=== PATIENT | female | born 1950 | race Caucasian/White ===

== ENCOUNTER → 2021-03-11 15:50 | Outpatient (CLI) | payer MEDICARE, MEDICAID, SELFPAY ==
[2021-03-11 16:29] LABS: COVID19 -Nasal RAPID Negative (Negative)
== END ==
PROVIDERS: Visit Provider Specialist
DX: Z01.812 Encounter for preprocedural laboratory examination (principal); Z20.822 Contact with and (suspected) exposure to COVID-19
CPT/HCPCS: 87635; C9803

== ENCOUNTER 2021-03-12 10:22 | Day surgery (SDC) | payer MEDICARE, MEDICAID, SELFPAY ==
[2021-03-10 14:26] VITALS: BMI 37.4
[2021-03-12] VITALS (7 sets, daily range): BP systolic 138–183; BP diastolic 61–103; PULSE 95–112; RESP 14–18; TEMP 36.2–38; O2SAT 90–96; BMI 37.4
--- NOTE | 2021-03-12 | PATH_ITS ---
[facility] Accession Number: [id number] . 01 Material submitted: . endometrium - ENDOMETRIAL CURRETTINGS . 02 Diagnosis: Endometrium, Curettings: Inactive/noncycling endometrium with no evidence of neoplasia or hyperplasia. [facility] 03/16/2021 1528 Local . 02 Electronically signed: . Brianna Chavez MD, Pathologist NPI- [id number] . 01 Gross description: . ENDOMETRIAL CURRETTINGS: Received in formalin are minute fragments of mucoid and hemorrhagic material measuring 0.5 x 0.5 x 0.2 cm in aggregate. Submitted in toto in 1 cassette. /KALI 03/13/2021 2103 Local . 02 Pathologist provided ICD-10: N93.9 . 02 CPT . 331466 Performed at: 01 [facility] [address] [id number] MD Duc Gulilen MD Phone: [phone] Performed at: 02 [facility] [address] [place], [place] [id number] MD Brianna Chavez MD Phone: [phone]
[2021-03-12] MEDS: LACTATED RINGERS 1,000 ML 84 ML IV (10:30)
--- NOTE | 2021-03-12 11:36 | SUR.OPER ---
Lithotomy on padded OR bed, head on pillow, arms secured on padded arm boards at <90 degrees abduction. Legs secured in padded yellow fins stirrups.
--- NOTE | 2021-03-12 11:49 | PM.HP.1 ---
History of Present Illness History of Present Illness Date Patient Seen: 03/12/21 Time Patient Seen: 11:49 Chief complaint: SDC Narrative: Patient is a 70-year-old 3 para 1 who presents for a D&C hysteroscopy due to postmenopausal bleeding and a thickened endometrial lining. Patient had a traumatic experience with an endometrial biopsy in the office, and did not want to attempt that this time. Lining of the uterus was 13.9 mm. Patient History Surgical History (Updated 12/25/20 @ 06:10 by Sara Bueno MD) H/O tubal ligation History of back surgery Status post wisdom tooth extraction Family & Social History Tobacco & Substance use: Smoking Status Former smoker alcohol intake current alcohol intake frequency a few times a week Substance Use Type marijuana Meds Home Medications and Allergies Home Medications Medication Instructions Recorded Confirmed Type levothyroxine 50 mcg tablet 50 mcg PO QDAY #30 10/03/12 03/12/21 Rx (Synthroid) ipratropium 20 mcg-albuterol 100 1 puff INH QID #0 inh 10/26/12 03/12/21 History mcg/actuation mist for inhalation (Combivent Respimat) benazepril 20 mg tablet 20 mg PO BID #0 tab 12/06/12 03/12/21 History amitriptyline 50 mg tablet 50 mg PO ONCE PM 03/12/21 03/12/21 History hydrochlorothiazide 25 mg tablet 25 mg PO QDAY 03/12/21 03/12/21 History metoprolol tartrate 25 mg tablet 25 mg PO DAILY 03/12/21 03/12/21 History Allergies Allergy/AdvReac Type Severity Reaction Status Date / Time From PERCOCET Allergy Unknown PER PT Uncoded 03/12/21 10:02 AMLODIPINE AdvReac Mild Edema Uncoded 03/12/21 10:02 CITALOPRAM AdvReac Mild Shakiness Uncoded 03/12/21 10:02 Exam Vital Signs (past 8 hours): - 03/12/21 10:46 Temperature 100.4 F H Pulse Rate 112 H Respiratory Rate 18 Blood Pressure 183/100 H Pulse Oximetry 96 Oxygen Delivery Method Room Air Narrative Exam Narrative: HEENT: No thyromegaly, no anterior cervical or supraclavicular lymphadenopathy. Lungs:Clear to auscultation bilaterally, no wheezes. Cardiovascular: Regular rate and rhythm, no murmurs, rubs, or gallops. Abdomen: Well-healed scars. No hepatosplenomegaly. No masses palpable. External genitalia: Normal Vagina: Normal Cervix: Normal Bimanual exam: 7 Week size anteverted uterus. Mobile. Extremities: No edema Assessment & Plan Assessment & Plan narrative: Assessment: 70-year-old 3 para 1 with endometrial hyperplasia and postmenopausal bleeding Did not want to attempt endometrial biopsy in the office due to a previous traumatic experience Plan: D&C hysteroscopy The risks, benefits, and alternatives to the procedure were explained to the patient. The risks including bleeding, infection, and uterine perforation. She understands these risks and agrees to proceed. A full par Q was held and consent form was signed. COVID-19 COVID-19 status: Negative Result date/Date tested (Pos, Neg/Pending): 03/11/21 Time Spent With Patient Time with patient: less than 30 minutes Critical Care time: I spent a total of [] minutes of critical care time on this patient's care today; this time is exclusive of procedural time.
--- NOTE | 2021-03-12 11:52 | PM.PREOP ---
Pre-operative Note COVID-19 COVID-19 status: Negative Result date/Date tested (Pos, Neg/Pending): 03/11/21 Interval Note History & Physical reviewed/Exam performed by Physician: Yes Changes to H&P: No H&P completed within 30 days and has changed as indicated here:: 03/13/21
--- NOTE | 2021-03-12 12:41 | PM.GYNOP.1 ---
Operative Date/Time/Diagnoses Date of procedure: 03/12/21 Time of procedure: 12:42 Pre-op diagnosis: Postmenopausal bleeding Endometrial hyperplasia Post-op diagnosis: same Procedure & Clinicians Procedure: Procedures Operation Date: 03/12/21 11:15 Actual Procedure Side Surgeon p Hysteroscopy D&C, check sling incision Not Applicable Sara Bueno MD Indications: Postmenopausal bleeding Endometrial hyperplasia Surgeon: Sara Bueno Anesthesia Type: General (LMA) Operative Notes Findings: 8 week size anteverted uterus Both fallopian tube ostia observed Thickened endometrial lining Closure Type: not applicable Specimen(s): endometrial curettings Estimated blood loss (mL): 5 Blood products transfused: none Procedure in detail: After informed consent was obtained, the patient was taken to the operating room where she was placed in the dorsal supine position. After LMA general anesthesia was achieved, she was placed in the dorsal lithotomy position, and prepped and draped in the usual sterile fashion. A time-out was performed. A bivalve speculum was placed into the vagina. A single-tooth tenaculum was placed on the anterior lip of the cervix. The cervical os was sequentially dilated to the # 9 Hegar dilator. The hysteroscope passed easily into the endometrial cavity. Initial inspection revealed both fallopian tube ostia. There was thickened endometrial lining. No polyps or fibroids were appreciated. The hysteroscope was removed from the uterus. Sharp curettage was performed yielding a large amount of endometrial curettings. The instruments were removed from the uterus. The single-tooth tenaculum was removed from the anterior lip of the cervix. The bivalve speculum was removed from the vagina. Sponge, lap, and instrument counts were correct x2. The patient tolerated the procedure well, and was taken to PACU in stable condition. Complications: none Post-operative Condition: stable Disposition: PACU Plan for aftercare: Home after recovery
== END 2021-03-12 13:33 | disposition home or self-care (01) ==
PROVIDERS: PCP Psychiatry & Neurology Forensic Psychiatry; Referring Provider Obstetrics & Gynecology; Visit Provider Obstetrics & Gynecology
PROC: 0UDB8ZZ Extraction of Endometrium, Via Natural or Artificial Opening Endoscopic (ICD-10-PCS; CPT 58558; principal; 2021-03-12 11:15)
DX: N95.0 Postmenopausal bleeding (principal); N85.00 Endometrial hyperplasia, unspecified
CPT/HCPCS: 58558; J1100; J1885; J2250; J2405; J2704; J3010

== ENCOUNTER 2022-08-04 21:39 | Emergency (ER) | payer MEDICARE, MEDICAID, SELFPAY ==
[2022-08-04 21:54] VITALS: BP 149/84; PULSE 97; RESP 18; TEMP 37; O2SAT 100; BMI 31.3
[2022-08-04 22:21] LABS: Add Manual Diff / Slide Review NO; Basophils Absolute Auto 100 /uL (0-100); Basophils Percent Auto 0.9 % (0-2); Eosinophils Absolute Auto 200 /uL (0-450); Eosinophils Percent Auto 1.8 % (2-4); Hematocrit 28.4 % (36-46); Lymphocytes Absolute Auto 1500 /uL (1100-4500); Lymphocytes Percent Auto 13.2 % (25-40); Mean Corpuscular HGB Conc 31.8 % (30-36); Mean Corpuscular Hemoglobin 24.1 PG (26-34); Mean Corpuscular Volume 75.7 fL (80-100); Monocytes Absolute Auto 800 /uL (0-900); Monocytes Percent Auto 6.7 % (3-14); Neutrophils Absolute Auto 8800 /uL (1500-7000); Neutrophils Percent Auto 77.4 % (50-75); Platelet Count 329 X10^3/uL (150-400); Red Blood Cell Count 3.75 X10^6/uL (4.0-5.2); Red Cell Distribution Width 21.2 % (11.6-14.8); White Blood Cell Count 11.4 X10^3/uL (4.5-11.0)
[2022-08-04 22:33] LABS: Alanine Aminotransferase 24 IU/L (<35); Albumin 4.2 g/dL (3.5-5.0); Albumin Globulin Ratio 1.4 (1.0-2.8); Alkaline Phosphatase 127 U/L (38-126); Aspartate Aminotransferase 28 IU/L (14-36); BUN Creatinine Ratio 17.5 (6-22); Bilirubin Total 0.9 mg/dL (0.2-1.3); Blood Urea Nitrogen 18 mg/dL (7-17); Calcium 9.2 mg/dL (8.4-10.2); Carbon Dioxide 25 mmol/L (22-32); Chloride 103 mmol/L (98-107); Estimated Glomerular Filt Rate 59 mL/min (>60); Glucose 116 mg/dL (80-110); HEMOLYSIS < 15 (0-50); Lipase 125 U/L (23-300); Potassium 3.4 mmol/L (3.4-5.1); Sodium 138 mmol/L (137-145); Total Protein 7.2 g/dL (6.3-8.2)
[2022-08-04 22:43] LABS: Ethanol (ETOH) < 10 mg/dL
[2022-08-04 23:06] LABS: Anisocytosis 3+
== END 2022-08-04 23:05 | disposition left against medical advice (07) ==
PROVIDERS: Emergency Provider Emergency Medicine
DX: R10.10 Upper abdominal pain, unspecified (principal); R11.2 Nausea with vomiting, unspecified; R19.7 Diarrhea, unspecified
CPT/HCPCS: 36415; 80053; 80320; 83690; 85025; 99283

== ENCOUNTER 2022-11-10 15:51 | Emergency (ER) | payer MEDICARE, MEDICAID, SELFPAY ==
[2022-11-10 16:10] VITALS: BP 154/73; PULSE 97; RESP 20; TEMP 36.8; O2SAT 98; BMI 31.9
[2022-11-10 16:54] LABS: Add Manual Diff / Slide Review NO; Basophils Absolute Auto 0 /uL (0-100); Basophils Percent Auto 0.2 % (0-2); Eosinophils Absolute Auto 200 /uL (0-450); Eosinophils Percent Auto 2.6 % (2-4); Hematocrit 27.7 % (36-46); Hemoglobin 8.9 g/dL (12.0-16.0); Lymphocytes Absolute Auto 1400 /uL (1100-4500); Lymphocytes Percent Auto 16.7 % (25-40); Mean Corpuscular HGB Conc 32.2 % (30-36); Mean Corpuscular Hemoglobin 23.7 PG (26-34); Mean Corpuscular Volume 73.7 fL (80-100); Monocytes Absolute Auto 600 /uL (0-900); Monocytes Percent Auto 7.4 % (3-14); Neutrophils Absolute Auto 6200 /uL (1500-7000); Neutrophils Percent Auto 73.1 % (50-75); Platelet Count 357 X10^3/uL (150-400); Red Blood Cell Count 3.76 X10^6/uL (4.0-5.2); Red Cell Distribution Width 18.6 % (11.6-14.8); White Blood Cell Count 8.4 X10^3/uL (4.5-11.0)
[2022-11-10 17:08] LABS: Alanine Aminotransferase 20 IU/L (<35); Albumin 4.4 g/dL (3.5-5.0); Albumin Globulin Ratio 1.3 (1.0-2.8); Alkaline Phosphatase 110 U/L (38-126); Aspartate Aminotransferase 28 IU/L (14-36); BUN Creatinine Ratio 14.9 (6-22); Bilirubin Total 0.7 mg/dL (0.2-1.3); Blood Urea Nitrogen 18 mg/dL (7-17); Calcium 9.2 mg/dL (8.4-10.2); Carbon Dioxide 26 mmol/L (22-32); Chloride 100 mmol/L (98-107); Estimated Glomerular Filt Rate 48 mL/min (>60); Globulin 3.4 g/dL (1.7-4.1); Glucose 109 mg/dL (80-110); HEMOLYSIS < 15 (0-50); Lipase 145 U/L (23-300); Potassium 3.6 mmol/L (3.4-5.1); Sodium 139 mmol/L (137-145); Total Protein 7.8 g/dL (6.3-8.2)
== END 2022-11-10 19:45 | disposition left against medical advice (07) ==
PROVIDERS: Emergency Medicine; Emergency Provider Emergency Medicine; PCP Family Medicine
DX: R10.10 Upper abdominal pain, unspecified (principal)
CPT/HCPCS: 36415; 80053; 81003; 83690; 85025; 99283

== ENCOUNTER 2022-11-21 20:45 | Emergency (ER) | payer MEDICARE, MEDICAID, SELFPAY ==
[2022-11-21] VITALS (10 sets, daily range): BP systolic 161–175; BP diastolic 77–92; PULSE 86–97; RESP 18–33; TEMP 36.9; O2SAT 95–97; BMI 31.9
[2022-11-21] MEDS: ONDANSETRON 4 MG/2 ML INJ IV (21:27)
[2022-11-21 21:35] LABS: Add Manual Diff / Slide Review NO; Basophils Absolute Auto 200 /uL (0-100); Basophils Percent Auto 2.1 % (0-2); Eosinophils Absolute Auto 200 /uL (0-450); Eosinophils Percent Auto 1.8 % (2-4); Hematocrit 28.4 % (36-46); Lymphocytes Absolute Auto 1400 /uL (1100-4500); Lymphocytes Percent Auto 14.4 % (25-40); Mean Corpuscular HGB Conc 31.7 % (30-36); Mean Corpuscular Hemoglobin 23.3 PG (26-34); Mean Corpuscular Volume 73.4 fL (80-100); Monocytes Absolute Auto 400 /uL (0-900); Monocytes Percent Auto 4.6 % (3-14); Neutrophils Absolute Auto 7300 /uL (1500-7000); Neutrophils Percent Auto 77.1 % (50-75); Platelet Count 359 X10^3/uL (150-400); Red Blood Cell Count 3.87 X10^6/uL (4.0-5.2); Red Cell Distribution Width 18.6 % (11.6-14.8); White Blood Cell Count 9.5 X10^3/uL (4.5-11.0)
--- NOTE | 2022-11-21 21:37 | DI.CT.S_ITS ---
PROCEDURE: CT ABDOMEN PELVIS W CON INDICATIONS: Lower abdominal pain. TECHNIQUE: After the administration of intravenous contrast, axial sections acquired from the lung bases to the pubic symphysis. Coronal and sagittal reformats were performed. For radiation dose reduction, the following was used: automated exposure control, adjustment of mA and/or kV according to patient size. COMPARISON: [facility], CT, CT ABDOMEN WITHOUT CONTRAST, 10/23/2021, 15:55. FINDINGS: Image quality: Excellent. Lung bases: Unremarkable. Heart: Cardiomegaly. ABDOMEN: Liver: Unremarkable. Gallbladder: Absent. Biliary ducts: Unremarkable. Pancreas: Unremarkable. Spleen: Normal size. Adrenal Glands: Stable 2.5 cm left adrenal nodule with indeterminate attenuation. Kidneys and Ureters: Fluid attenuating renal cysts; no complex renal cysts which require follow-up. No hydronephrosis or nephrolithiasis. Stomach and Bowel: Colonic diverticulosis without evidence of diverticulitis. Normal appendix. Peritoneum: No abnormal intraperitoneal fluid. No free air. Ventral Wall: No hernias. Abdominal Nodes: No retroperitoneal or mesenteric adenopathy by size criteria. Vessels: Aorta and inferior vena cava are normal in size. PELVIS: Pelvic Organs: Pedunculated, calcified fibroid. Mild irregularity of the endometrium, measuring 9 mm. Bladder: Unremarkable. Pelvic Nodes: No enlarged lymph nodes. Miscellaneous: No hernias are seen. Bones: Unremarkable. IMPRESSION: No findings to explain the patient's lower abdominal pain. Diverticulosis without diverticulitis. Normal appendix. Mild irregularity of the endometrium, measuring 9 mm. Consider outpatient evaluation with pelvic ultrasound. Stable 2.5 cm left adrenal nodule since 10/23/2021. Consider further evaluation with nonurgent adrenal CT or MRI, or at least a an 11 month follow-up to ensure stability since 2021. Dictated by: Vincent Garg M.D. on 11/21/2022 at 22:15 Approved by: Vincent Garg M.D. on 11/21/2022 at 22:21
[2022-11-21 21:41] LABS: Alanine Aminotransferase 25 IU/L (<35); Albumin 4.4 g/dL (3.5-5.0); Albumin Globulin Ratio 1.2 (1.0-2.8); Alkaline Phosphatase 130 U/L (38-126); Aspartate Aminotransferase 33 IU/L (14-36); BUN Creatinine Ratio 24.4 (6-22); Bilirubin Total 0.7 mg/dL (0.2-1.3); Blood Urea Nitrogen 22 mg/dL (7-17); Calcium 9.4 mg/dL (8.4-10.2); Carbon Dioxide 25 mmol/L (22-32); Chloride 103 mmol/L (98-107); Estimated Glomerular Filt Rate > 60 mL/min (>60); Globulin 3.7 g/dL (1.7-4.1); Glucose 99 mg/dL (80-110); HEMOLYSIS < 15 (0-50); Lipase 158 U/L (23-300); Potassium 3.2 mmol/L (3.4-5.1); Sodium 142 mmol/L (137-145); Total Protein 8.1 g/dL (6.3-8.2)
--- NOTE | 2022-11-21 22:45 | PC.NURSE ---
Patient has requested food from myself and the [employer]. She was informed we need to wait for the provider to see her after getting the diagnostic imaging tests. Patient expressed understanding and requested something to keep her busy. Patient given kelsieu puzzles.
[2022-11-21] MEDS: POTASSIUM CHLORIDE 20 MEQ/15 ML UDC 40 MEQ PO (23:16)
--- NOTE | 2022-11-21 23:27 | ED_ITS ---
HPI - Abdominal Pain General Chief Complaint: Abdominal Pain Stated Complaint: Stomach pain Time Seen by Provider: 11/21/22 21:34 Source: patient Mode of arrival: Ambulatory Limitations: no limitations History of Present Illness HPI narrative: This is a 72-year-old female with history of prior stroke, hypertension, hypothyroidism, dyslipidemia, gout with complaint of abdominal pain. Patient has had multiple visits at [facility] including 1 or 2 today received records from these today as well as 18 total visits for the month of October. Patient states she is had abdominal pain for several weeks, she states it comes and goes. She describes it as being sort of epigastric it does not radiate. She states nothing seems to make it worse nothing seems to make it better. It just sort of seems to happen and then will resolve after time. She states sometimes feels nauseated she never has any vomiting with it. She states she is chronic diarrhea no black or bloody stools. She states no lower abd ominal back or flank pain. Denies chest pain or shortness of breath. She denies dysuria, urgency or frequency. She denies any vaginal bleeding or discharge. Patient denies any swelling. No syncope. Patient states she had a prior cholecystectomy a year ago. She states she has a list of medication allergies she does not recall all of them. No tobacco, states she drinks 2 alcoholic drinks daily which are vodka. No recreational drugs other than occasional liquid THC. Her primary care is Dr. Cole. She states she has possibly been referred for EGD but has not had one and is unsure if she is actually been referred. Related Data Home Medications Medication Instructions Recorded Confirmed ipratropium 20 mcg-albuterol 100 1 puff INH QID #0 inhalations 10/26/12 03/12/21 mcg/actuation mist for inhalation (Combivent Respimat) benazepril 20 mg tablet 20 mg PO BID #0 tabs 12/06/12 03/12/21 amitriptyline 50 mg tablet 50 mg PO ONCE PM 03/12/21 03/12/21 hydrochlorothiazide 25 mg tablet 25 mg PO QDAY 03/12/21 03/12/21 metoprolol tartrate 25 mg tablet 25 mg PO DAILY 03/12/21 03/12/21 allopurinol 300 mg tablet 300 mg PO DAILY 11/10/22 11/10/22 atorvastatin 80 mg tablet 80 mg PO DAILY 11/10/22 11/10/22 chlorthalidone 25 mg tablet 25 mg PO DAILY 11/10/22 11/10/22 dicyclomine 20 mg tablet 20 mg PO BID 11/10/22 11/10/22 esomeprazole magnesium 40 mg 40 mg PO BID 11/10/22 11/10/22 capsule,delayed release hydroxyzine HCl 25 mg tablet 25 mg PO 4XD 11/10/22 11/10/22 levothyroxine 75 mcg tablet 75 mcg PO DAILY 11/10/22 11/10/22 lisinopril 10 mg tablet 10 mg PO DAILY 11/10/22 11/10/22 magnesium oxide 400 mg (241.3 mg 400 mg PO DAILY 11/10/22 11/10/22 magnesium) tablet metoclopramide HCl 10 mg tablet 10 mg PO 3XD 11/10/22 11/10/22 omeprazole 40 mg capsule,delayed 40 mg PO QAM 11/10/22 11/10/22 release ondansetron 8 mg disintegrating 8 mg PO Q8H PRN Nausea 11/10/22 11/10/22 tablet pantoprazole 40 mg tablet,delayed 40 mg PO BID 11/10/22 11/10/22 release potassium chloride 10 mEq 10 meq PO DAILY 11/10/22 11/10/22 tablet,extended release sucralfate 100 mg/mL oral 10 ml PO 4XD 11/10/22 11/10/22 suspension Previous Rx's Medication Instructions Recorded levothyroxine 50 mcg tablet 50 mcg PO QDAY ##30 10/03/12 (Synthroid) Allergies Allergy/AdvReac Type Severity Reaction Status Date / Time From PERCOCET Allergy Unknown PER PT Uncoded 11/10/22 16:36 AMLODIPINE AdvReac Mild Edema Uncoded 11/10/22 16:36 CITALOPRAM AdvReac Mild Shakiness Uncoded 11/10/22 16:36 Review of Systems Review of Systems ROS Unobtainable: All systems reviewed & are unremarkable except as noted in HPI and below Patient History Surgical History H/O tubal ligation History of back surgery Status post wisdom tooth extraction Social History Smoking Status: Former smoker alcohol intake: current Smoking Status: Former smoker alcohol intake frequency: 0-2 drinks per day Alcohol type: hard liquor Substance Use Type: marijuana Exam Narrative Exam Narrative: GENERAL: Alert and oriented x three, female in mild distress. HEENT: Head normocephalic, atraumatic, EOMI, pupils reactive, face symmetric, moist mucous membranes NECK: Supple, full range of motion CARDIOVASCULAR: Regular rate and rhythm without murmurs, rubs or gallops. RESPIRATORY: Breath sounds equal bilaterally, no wheezes rales or rhonchi. ABDOMEN: Soft, mild epigastric tenderness. No distention. Normoactive bowel sounds all 4 quadrants. No guarding or rebound, rigidity, no mass. No rash or skin changes. : No CVA tenderness EXTREMITIES: Normal range of motion, no clubbing or edema. Neurovascularly intact NEUROLOGICAL: Cranial nerves II through XII grossly intact. Moving all extremities. Normal gait. SKIN: Warm, dry, no petechiae, no rashes or lesions. Initial Vital Signs Initial Vital Signs: Vital Signs Temperature 98.5 F 11/21/22 21:03 Pulse Rate 95 H 11/21/22 21:03 Respiratory Rate 18 11/21/22 21:03 Blood Pressure 170/92 H 11/21/22 21:03 Pulse Oximetry 96 11/21/22 21:03 Oxygen Delivery Method Room Air 11/21/22 21:03 Course Orders Ordered: ED Orders 11/21/22 21:12 EKG-12 Lead Stat 11/21/22 21:22 Complete Blood Count AUTO DIFF Stat Comprehensive Metabolic Panel Stat Lipase Stat 11/21/22 21:37 CT abdomen pelvis w con Stat Discontinued Medications Ondansetron HCl (Ondansetron 4 Mg Odt) 4 mg PO NOW PRN PRN Reason: Nausea And Vomiting Ondansetron HCl (Ondansetron 4 Mg/2 Ml Inj) 4 mg IV NOW PRN PRN Reason: Nausea And Vomiting Last Admin: 11/21/22 21:27 Dose: 4 mg Documented By: YAN Potassium Chloride (Potassium Chloride 20 Meq/15 Ml Udc) 40 meq PO NOW ONE Stop: 11/21/22 22:46 Last Admin: 11/21/22 23:16 Dose: 40 meq Documented By: YAN Vital Signs Vital signs: Vital Signs - 8 hr 11/21/22 21:03 11/21/22 21:13 11/21/22 21:30 Temperature 98.5 F Pulse Rate 95 H 97 H Respiratory Rate 18 Blood Pressure 170/92 H 163/92 H Pulse Oximetry 96 97 Oxygen Delivery Method Room Air 11/21/22 21:30 11/21/22 22:00 11/21/22 22:01 Temperature Pulse Rate 93 H 93 H Respiratory Rate Blood Pressure 161/77 H Pulse Oximetry 97 97 Oxygen Delivery Method Room Air 11/21/22 22:01 11/21/22 22:30 11/21/22 22:30 Temperature Pulse Rate 90 86 Respiratory Rate 33 H Blood Pressure 175/83 H Pulse Oximetry 96 97 Oxygen Delivery Method 11/21/22 23:00 11/21/22 23:04 11/21/22 23:10 Temperature Pulse Rate 91 H 93 H Respiratory Rate 31 H 20 Blood Pressure 166/89 H Pulse Oximetry 97 96 Oxygen Delivery Method 11/21/22 23:10 11/21/22 23:30 Temperature Pulse Rate 91 H 87 Respiratory Rate 24 23 Blood Pressure Pulse Oximetry 95 97 Oxygen Delivery Method Room Air MDM - Abdominal Pain Lab Data 11/21/22 21:22 11/21/22 21:22 Labs: Lab Results 11/21/22 11/21/22 Range/Units 21:22 21:22 WBC 9.5 (4.5-11.0) X10^3/uL RBC 3.87 L (4.0-5.2) X10^6/uL Hgb 9.0 L (12.0-16.0) g/dL Hct 28.4 L (36-46) % MCV 73.4 L (80-100) fL MCH 23.3 L (26-34) PG MCHC 31.7 (30-36) % RDW 18.6 H (11.6-14.8) % Plt Count 359 (150-400) X10^3/uL Neut % (Auto) 77.1 H (50-75) % Lymph % (Auto) 14.4 L (25-40) % [place] % (Auto) 4.6 (3-14) % Eos % (Auto) 1.8 L (2-4) % Baso % (Auto) 2.1 H (0-2) % Neut # (Auto) 7300 H (2514-1601) /uL Lymph # (Auto) 1400 (7900-5287) /uL [place] # (Auto) 400 (0-900) /uL Eos # (Auto) 200 (0-450) /uL Baso # (Auto) 200 H (0-100) /uL Sodium 142 (137-145) mmol/L Potassium 3.2 L (3.4-5.1) mmol/L Chloride 103 (98-107) mmol/L Carbon Dioxide 25 (22-32) mmol/L BUN 22 H (7-17) mg/dL Creatinine 0.90 (0.52-1.04) mg/dL Estimated GFR > 60 (>60) mL/min BUN/Creatinine Ratio 24.4 H (6-22) Glucose 99 (80-110) mg/dL Calcium 9.4 (8.4-10.2) mg/dL Total Bilirubin 0.7 (0.2-1.3) mg/dL AST 33 (14-36) IU/L ALT 25 (<35) IU/L Alkaline Phosphatase 130 H (38-126) U/L Total Protein 8.1 (6.3-8.2) g/dL Albumin 4.4 (3.5-5.0) g/dL Globulin 3.7 (1.7-4.1) g/dL Albumin/Globulin Ratio 1.2 (1.0-2.8) Lipase 158 (23-300) U/L Point of care testing: Urine Dip Bedside Urine Glucose Negative Bedside Urine Bilirubin - Negative Bedside Urine Ketone - Negative Urine Specific [place] 1.025 Bedside Urine Occult Blood - Negative Bedside Urine pH 6.0 Bedside Urine Protein +/- 15 Bedside Urine Urobilinogen - Negative Bedside Urine Nitrite - Negative Bedside Urine Leukocytes - Negative Esterase Imaging Data CT scan - abdomen/pelvis: Radiologist's Impression: [address] [address] [address] Scan Report Signed Patient: Roshni Knapp MR#: [id number] : 1950 Acct:[id number] Age/Sex: 72 / F Date of Service: 11/21/22 Loc: ED Accession Number: [id number] ?? Procedure: CT abdomen pelvis w con Ordering Provider: Jalyn Philippe D.O. PROCEDURE:? CT ABDOMEN PELVIS W CON ? INDICATIONS:? Lower abdominal pain. ? TECHNIQUE:? After the administration of intravenous contrast, axial sections acquired from the lung bases to the pubic symphysis.? Coronal and sagittal reformats were performed.? For radiation dose reduction, the following was used:? automated exposure control, adjustment of mA and/or kV according to patient size.? ? COMPARISON:? [facility], CT, CT ABDOMEN WITHOUT CONTRAST, 10/23/2021, 15:55. ? FINDINGS:? Image quality:? Excellent.? ? Lung bases:? Unremarkable. Heart:? Cardiomegaly. ? ABDOMEN: Liver:? Unremarkable.? ? Gallbladder:? Absent. Biliary ducts:? Unremarkable.? ? Pancreas:? Unremarkable.? ? Spleen:? Normal size. Adrenal Glands:? Stable 2.5 cm left adrenal nodule with indeterminate attenuation. Kidneys and Ureters:? Fluid attenuating renal cysts; no complex renal cysts which require follow-up.? No hydronephrosis or nephrolithiasis. ? Stomach and Bowel: Colonic diverticulosis without evidence of diverticulitis.? Normal appendix.? Peritoneum:? No abnormal intraperitoneal fluid.? No free air.? ? Ventral Wall: ? No hernias.? Abdominal Nodes:? No retroperitoneal or mesenteric adenopathy by size criteria.? Vessels:? Aorta and inferior vena cava are normal in size.? ? PELVIS: Pelvic Organs:? Pedunculated, calcified fibroid. ? Mild irregularity of the endometrium, measuring 9 mm. Bladder:? Unremarkable.? ? Pelvic Nodes: No enlarged lymph nodes.? Miscellaneous: No hernias are seen. ? ? ? Bones:? Unremarkable.? IMPRESSION:? No findings to explain the patient's lower abdominal pain.? Diverticulosis without diverticulitis.? Normal appendix. ? Mild irregularity of the endometrium, measuring 9 mm.? Consider outpatient evaluation with pelvic ultrasound. ? Stable 2.5 cm left adrenal nodule since 10/23/2021.? Consider further evaluation with nonurgent adrenal CT or MRI, or at least a an 11 month follow-up to ensure stability since 2021. ? ? Dictated by: Vincent Garg M.D. on 11/21/2022 at 22:15 ? ? Approved by: Vincent Garg M.D. on 11/21/2022 at 22:21?? ECG Data Attestation: I personally reviewed and interpreted this ECG as follows: Interpretation: Sinus rhythm rate of 92 IN 180 QRS [address] QTC 474. No acute ST elevation depression noted. MDM Narrative Medical decision making narrative: 72-year-old female with extensive number of visits for abdominal pain at outside facility, patient presents today for same issue she was at [facility] 2 times today and then presents here. She is complaining of abdominal pain describes it as epigastric it is slightly reproducible, patient is overall well-appearing. Hemoglobin is 9 but appears stable from prior labs at our facility, platelets are 359 white count 9.5, CMP shows no acute change LFTs are negative, alk-phos is 130, urine does not show any clear signs of infection. Patient's CT shows stable left adrenal nodule, renal cysts which are simple, some endometrial hyperplasia potentially 9 mm and pedunculated fibroid. Patient and I discussed her findings from today she is recommended have EGD and was given referral from ourselves as well. Does not appear she is on medication that would be appropriate including Carafate and pantoprazole daily. Cardiac source seems less likely. Patient has had multiple evaluations at outside facility but had not had any CT imaging had had x-rays recently. As she is not as well known to this facility did have additional imaging workup. Reviewed patient's findings from today we will also give referral to follow up with Gynecology. Patient expresses understanding and states she will follow up with this. Discharge Plan Departure Patient Disposition: Home Clinical Impression: Abdominal pain Instructions: DI for Abdominal Pain-Adult Activity Restrictions/Additional Instructions: Follow-up for recheck. I would recommend follow up for EGD. Please call to set up follow-up. You are on appropriate medications including Carafate and Protonix daily. Your imaging does show some thickening of the endometrium of the uterus, it is recommended follow up with Gynecology for pelvic ultrasound and further workup. Please call to set up an appointment. Please return for new or concerning changes, passing out, persistent vomiting, black or bloody stools or other new or concerning changes. Prescriptions: No Action levothyroxine [Synthroid] 50 MCG tablet 50 mcg PO QDAY Qty: 30 12RF Combivent Respimat 4 GM mist 1 puff INH QID Qty: 0 benazepril 20 MG tablet 20 mg PO BID Qty: 0 hydrochlorothiazide 25 MG tablet 25 mg PO QDAY metoprolol tartrate 25 mg tablet 25 mg PO DAILY amitriptyline 50 mg tablet 50 mg PO ONCE PM atorvastatin 80 mg tablet 80 mg PO DAILY sucralfate 100 mg/mL suspension 10 ml PO 4XD potassium chloride 10 mEq tablet extended release 10 meq PO DAILY chlorthalidone 25 mg tablet 25 mg PO DAILY omeprazole 40 mg capsule,delayed release(DR/EC) 40 mg PO QAM ondansetron 8 mg tablet,disintegrating 8 mg PO Q8H PRN (Reason: Nausea) levothyroxine 75 mcg tablet 75 mcg PO DAILY magnesium oxide 400 mg (241.3 mg magnesium) tablet 400 mg PO DAILY dicyclomine 20 mg tablet 20 mg PO BID pantoprazole 40 mg tablet,delayed release (DR/EC) 40 mg PO BID esomeprazole magnesium 40 mg capsule,delayed release(DR/EC) 40 mg PO BID lisinopril 10 mg tablet 10 mg PO DAILY hydroxyzine HCl 25 mg tablet 25 mg PO 4XD allopurinol 300 mg tablet 300 mg PO DAILY metoclopramide HCl 10 mg tablet 10 mg PO 3XD Referrals: Brendan Romero MD [Physician] - Luz Elena Cole MD [Primary Care Provider] - Maurice Bar MD [Physician] - Stand Alone Forms: Patient Portal/API
== END 2022-11-21 23:45 | disposition home or self-care (01) ==
PROVIDERS: Emergency Provider Emergency Medicine; PCP Family Medicine
DX: R10.9 Unspecified abdominal pain (principal); Z79.899 Other long term (current) drug therapy
CPT/HCPCS: 36415; 74177; 80053; 81003; 83690; 85025; 93005; 96374; 99284; J2405; Q9967

== ENCOUNTER 2022-11-22 06:24 | Emergency (ER) | payer MEDICARE, MEDICAID, SELFPAY ==
[2022-11-22 06:30] VITALS: BP 167/86; PULSE 78; RESP 18; TEMP 36.6; O2SAT 97; BMI 31.9
--- NOTE | 2022-11-22 07:07 | ED.GENADULT ---
HPI - General Adult General Chief complaint: Abdominal Pain Stated complaint: abd pain T-1 Time Seen by Provider: 11/22/22 06:26 Source: patient Mode of arrival: Ambulatory History of Present Illness HPI narrative: Patient is a 72-year-old female who has been seen multiple times at an outside hospital and then at our facility within the past 24 hours for abdominal pain that has been present for the past month. She states it is in her upper abdomen. She is on heartburn medicine. She returns today because of continued pain. She states that things have not changed. She continues to be nauseous. She does not have any nausea medicine at home. She is diarrhea but this is not new. No fevers. No chest pain. No shortness of breath. She stated that she does have an appointment to see GI but does not know when that is scheduled. She did see her primary doctor but that was back at the beginning of this process about 1 month ago. Related Data Home Medications Medication Instructions Recorded Confirmed ipratropium 20 mcg-albuterol 100 1 puff INH QID #0 inhalations 10/26/12 03/12/21 mcg/actuation mist for inhalation (Combivent Respimat) benazepril 20 mg tablet 20 mg PO BID #0 tabs 12/06/12 03/12/21 amitriptyline 50 mg tablet 50 mg PO ONCE PM 03/12/21 03/12/21 hydrochlorothiazide 25 mg tablet 25 mg PO QDAY 03/12/21 03/12/21 metoprolol tartrate 25 mg tablet 25 mg PO DAILY 03/12/21 03/12/21 allopurinol 300 mg tablet 300 mg PO DAILY 11/10/22 11/10/22 atorvastatin 80 mg tablet 80 mg PO DAILY 11/10/22 11/10/22 chlorthalidone 25 mg tablet 25 mg PO DAILY 11/10/22 11/10/22 dicyclomine 20 mg tablet 20 mg PO BID 11/10/22 11/10/22 esomeprazole magnesium 40 mg 40 mg PO BID 11/10/22 11/10/22 capsule,delayed release hydroxyzine HCl 25 mg tablet 25 mg PO 4XD 11/10/22 11/10/22 levothyroxine 75 mcg tablet 75 mcg PO DAILY 11/10/22 11/10/22 lisinopril 10 mg tablet 10 mg PO DAILY 11/10/22 11/10/22 magnesium oxide 400 mg (241.3 mg 400 mg PO DAILY 11/10/22 11/10/22 magnesium) tablet metoclopramide HCl 10 mg tablet 10 mg PO 3XD 11/10/22 11/10/22 omeprazole 40 mg capsule,delayed 40 mg PO QAM 11/10/22 11/10/22 release ondansetron 8 mg disintegrating 8 mg PO Q8H PRN Nausea 11/10/22 11/10/22 tablet pantoprazole 40 mg tablet,delayed 40 mg PO BID 11/10/22 11/10/22 release potassium chloride 10 mEq 10 meq PO DAILY 11/10/22 11/10/22 tablet,extended release sucralfate 100 mg/mL oral 10 ml PO 4XD 11/10/22 11/10/22 suspension Previous Rx's Medication Instructions Recorded levothyroxine 50 mcg tablet 50 mcg PO QDAY ##30 10/03/12 (Synthroid) ondansetron 4 mg disintegrating 4 mg PO Q6H PRN nausea and 11/22/22 tablet vomiting #14 tabs Allergies Allergy/AdvReac Type Severity Reaction Status Date / Time From PERCOCET Allergy Unknown PER PT Uncoded 11/10/22 16:36 AMLODIPINE AdvReac Mild Edema Uncoded 11/10/22 16:36 CITALOPRAM AdvReac Mild Shakiness Uncoded 11/10/22 16:36 Review of Systems Constitutional Constitutional: Reports system reviewed and no additional complaints, except as documented Cardiovascular Cardiovascular: Reports system reviewed and no additional complaints, except as documented Respiratory Respiratory: Reports system reviewed and no additional complaints, except as documented Gastrointestinal Gastrointestinal: Reports system reviewed and no additional complaints, except as documented Genitourinary Genitourinary: Reports system reviewed and no additional complaints, except as documented Hematologic/Lymphatic On Anticoagulants: No Patient History Surgical History H/O tubal ligation History of back surgery Status post wisdom tooth extraction Social History Smoking Status: Former smoker alcohol intake: current Smoking Status: Former smoker alcohol intake frequency: 0-2 drinks per day Alcohol type: hard liquor Substance Use Type: marijuana Exam Initial Vital Signs Initial Vital Signs: Vital Signs Temperature 97.9 F 11/22/22 06:30 Pulse Rate 78 11/22/22 06:30 Respiratory Rate 18 11/22/22 06:30 Blood Pressure 167/86 H 11/22/22 06:30 Pulse Oximetry 97 11/22/22 06:30 Oxygen Delivery Method Room Air 11/22/22 06:30 Const General: cooperative, comfortable and No ill appearing [facility] Head: normal to inspection Resp Effort & Inspection: normal respiratory effort Cardio Rate: regular rate GI Inspection: non-distended Skin General: no rashes or lesions noted Neuro General: patient alert and patient awake Course Orders Ordered: ED Orders 11/22/22 06:52 CBC Auto Diff [Complete Blood Count AUTO DIFF] Stat CMP [Comprehensive Metabolic Panel] Stat Lipase Stat 11/22/22 07:31 Urine Culture Stat Urine Microscopic Stat Discontinued Medications Ondansetron HCl (Ondansetron 4 Mg Odt) 4 mg SL NOW ONE Stop: 11/22/22 07:37 Last Admin: 11/22/22 07:43 Dose: 4 mg Documented By: ORAL Vital Signs Vital signs: Vital Signs - 8 hr 11/22/22 06:30 Temperature 97.9 F Pulse Rate 78 Respiratory Rate 18 Blood Pressure 167/86 H Pulse Oximetry 97 Oxygen Delivery Method Room Air Medical Decision Making Lab Data 11/22/22 06:52 11/22/22 06:52 Labs: Lab Results 11/22/22 11/22/22 11/22/22 Range/Units 06:52 06:52 07:31 WBC 7.9 (4.5-11.0) X10^3/uL RBC 3.68 L (4.0-5.2) X10^6/uL Hgb 8.7 L (12.0-16.0) g/dL Hct 27.1 L (36-46) % MCV 73.8 L (80-100) fL MCH 23.6 L (26-34) PG MCHC 32.0 (30-36) % RDW 18.8 H (11.6-14.8) % Plt Count 336 (150-400) X10^3/uL Neut % (Auto) 66.6 (50-75) % Lymph % (Auto) 21.1 L (25-40) % [place] % (Auto) 7.1 (3-14) % Eos % (Auto) 3.8 (2-4) % Baso % (Auto) 1.4 (0-2) % Neut # (Auto) 5300 (1705-4546) /uL Lymph # (Auto) 1700 (6506-5583) /uL [place] # (Auto) 600 (0-900) /uL Eos # (Auto) 300 (0-450) /uL Baso # (Auto) 100 (0-100) /uL Sodium 140 (137-145) mmol/L Potassium 3.4 (3.4-5.1) mmol/L Chloride 106 (98-107) mmol/L Carbon Dioxide 23 (22-32) mmol/L BUN 18 H (7-17) mg/dL Creatinine 0.90 (0.52-1.04) mg/dL Estimated GFR > 60 (>60) mL/min BUN/Creatinine Ratio 20.0 (6-22) Glucose 96 (80-110) mg/dL Calcium 9.4 (8.4-10.2) mg/dL Total Bilirubin 0.5 (0.2-1.3) mg/dL AST 29 (14-36) IU/L ALT 22 (<35) IU/L Alkaline Phosphatase 122 (38-126) U/L Total Protein 7.4 (6.3-8.2) g/dL Albumin 4.1 (3.5-5.0) g/dL Globulin 3.3 (1.7-4.1) g/dL Albumin/Globulin Ratio 1.2 (1.0-2.8) Lipase 160 (23-300) U/L Urine RBC None seen (0-5/HPF) Urine WBC 1-5/hpf (0-5/HPF) Ur Squamous Epith Cells 1-5 /hpf (0-5/HPF) Urine Bacteria None seen (None) Ur Culture Indicated? Specimen cultured Urine Dip Bedside Urine Glucose Negative Bedside Urine Bilirubin - Negative Bedside Urine Ketone - Negative Urine Specific [place] 1.015 Bedside Urine Occult Blood - Negative Bedside Urine pH 5.5 Bedside Urine Protein +/- 15 Bedside Urine Urobilinogen - Negative Bedside Urine Nitrite - Negative Bedside Urine Leukocytes - Negative Esterase Point of care testing: Urine Dip Bedside Urine Glucose Negative Bedside Urine Bilirubin - Negative Bedside Urine Ketone - Negative Urine Specific [place] 1.015 Bedside Urine Occult Blood - Negative Bedside Urine pH 5.5 Bedside Urine Protein +/- 15 Bedside Urine Urobilinogen - Negative Bedside Urine Nitrite - Negative Bedside Urine Leukocytes - Negative Esterase MDM Narrative Medical decision making narrative: Patient has the same symptoms today that she is been having for the past month. Her LFTs are normal. She has had her gallbladder removed. Her lipase is just above 900. This very well could be the cause of her epigastric pain. She is nontoxic in appearing. She states she does drink alcohol regularly. I had a long discussion with her regarding this. Advised that she cut back on the amount of alcohol that she is drinking. Recommended a clear liquid/bland diet. We will give her phone number for follow-up with GI. Discharge Plan Departure Patient Disposition: Home Clinical Impression: Abdominal pain Instructions: DI for Abdominal Pain-Adult Activity Restrictions/Additional Instructions: I do recommend that you cut back on the amount of alcohol that you were drinking. I also recommend a bland diet for the next couple days. You can contact your primary doctor and also the GI doctor at the number provided below for follow-up. Nausea medication was sent to [facility] in [place] per your request. Prescriptions: New ondansetron 4 mg tablet,disintegrating 4 mg PO Q6H PRN (Reason: nausea and vomiting) Qty: 14 0RF No Action levothyroxine [Synthroid] 50 MCG tablet 50 mcg PO QDAY Qty: 30 12RF Combivent Respimat 4 GM mist 1 puff INH QID Qty: 0 benazepril 20 MG tablet 20 mg PO BID Qty: 0 hydrochlorothiazide 25 MG tablet 25 mg PO QDAY metoprolol tartrate 25 mg tablet 25 mg PO DAILY amitriptyline 50 mg tablet 50 mg PO ONCE PM atorvastatin 80 mg tablet 80 mg PO DAILY sucralfate 100 mg/mL suspension 10 ml PO 4XD potassium chloride 10 mEq tablet extended release 10 meq PO DAILY chlorthalidone 25 mg tablet 25 mg PO DAILY omeprazole 40 mg capsule,delayed release(DR/EC) 40 mg PO QAM ondansetron 8 mg tablet,disintegrating 8 mg PO Q8H PRN (Reason: Nausea) levothyroxine 75 mcg tablet 75 mcg PO DAILY magnesium oxide 400 mg (241.3 mg magnesium) tablet 400 mg PO DAILY dicyclomine 20 mg tablet 20 mg PO BID pantoprazole 40 mg tablet,delayed release (DR/EC) 40 mg PO BID esomeprazole magnesium 40 mg capsule,delayed release(DR/EC) 40 mg PO BID lisinopril 10 mg tablet 10 mg PO DAILY hydroxyzine HCl 25 mg tablet 25 mg PO 4XD allopurinol 300 mg tablet 300 mg PO DAILY metoclopramide HCl 10 mg tablet 10 mg PO 3XD Referrals: Luz Elena Cole MD [Primary Care Provider] - Dimitris Lewis MD [Physician] - Stand Alone Forms: Patient Portal/API
[2022-11-22 07:29] LABS: Add Manual Diff / Slide Review NO; Basophils Absolute Auto 100 /uL (0-100); Basophils Percent Auto 1.4 % (0-2); Eosinophils Absolute Auto 300 /uL (0-450); Eosinophils Percent Auto 3.8 % (2-4); Hematocrit 27.1 % (36-46); Hemoglobin 8.7 g/dL (12.0-16.0); Lymphocytes Absolute Auto 1700 /uL (1100-4500); Lymphocytes Percent Auto 21.1 % (25-40); Mean Corpuscular Hemoglobin 23.6 PG (26-34); Mean Corpuscular Volume 73.8 fL (80-100); Monocytes Absolute Auto 600 /uL (0-900); Monocytes Percent Auto 7.1 % (3-14); Neutrophils Absolute Auto 5300 /uL (1500-7000); Neutrophils Percent Auto 66.6 % (50-75); Platelet Count 336 X10^3/uL (150-400); Red Blood Cell Count 3.68 X10^6/uL (4.0-5.2); Red Cell Distribution Width 18.8 % (11.6-14.8); White Blood Cell Count 7.9 X10^3/uL (4.5-11.0)
[2022-11-22 07:43] LABS: Alanine Aminotransferase 22 IU/L (<35); Albumin 4.1 g/dL (3.5-5.0); Albumin Globulin Ratio 1.2 (1.0-2.8); Alkaline Phosphatase 122 U/L (38-126); Aspartate Aminotransferase 29 IU/L (14-36); Bilirubin Total 0.5 mg/dL (0.2-1.3); Blood Urea Nitrogen 18 mg/dL (7-17); Calcium 9.4 mg/dL (8.4-10.2); Carbon Dioxide 23 mmol/L (22-32); Chloride 106 mmol/L (98-107); Estimated Glomerular Filt Rate > 60 mL/min (>60); Globulin 3.3 g/dL (1.7-4.1); Glucose 96 mg/dL (80-110); HEMOLYSIS < 15 (0-50); Lipase 160 U/L (23-300); Potassium 3.4 mmol/L (3.4-5.1); Sodium 140 mmol/L (137-145); Total Protein 7.4 g/dL (6.3-8.2)
[2022-11-22] MEDS: ONDANSETRON 4 MG ODT SL (07:43)
[2022-11-22 07:57] LABS: RBC Urine None Seen (0-5/HPF)
[2022-11-22 07:58] LABS: Bacteria Urine None Seen; Culture Indicated Urine Specimen Cultured; Squamous Epithelial Cell Urine 1-5 /HPF (0-5/HPF); WBC Urine 1-5/HPF (0-5/HPF)
--- NOTE | 2022-11-22 08:05 | PC.NURSE ---
Addendum entered by Ludy Webster R.N. 11/22/22 08:07: Pt made aware she needs to follow up with her PCP Dr Cole. Mentioned in previous notes that pt has an appt with GI. When asked when her appt is pt responds with i dont know. Pt short with her answers to RN and difficult to obtain history. Advised she needs to make follow up alejandro with Dr Cole. Original Note: Greeted pt in room 5. sitting in WC. reports abd pain that has been ongoing x 1 month. was seen here in ED yesterday and received labs and CT scan, was discharged, went over to [facility] and was evaluated and had another workup, was discharged from [facility] ED, returned here c/o pain. Labs drawn and urine obtained. Dr Israel in to see.
[2022-11-22 08:10] VITALS: BP 170/77; PULSE 83; RESP 16; O2SAT 96
== END 2022-11-22 08:10 | disposition home or self-care (01) ==
PROVIDERS: Emergency Medicine; Emergency Provider Emergency Medicine; PCP Family Medicine
DX: R10.9 Unspecified abdominal pain (principal); Z79.899 Other long term (current) drug therapy
CPT/HCPCS: 36415; 80053; 81003; 81015; 83690; 85025; 87086; 99283